=== PATIENT | female | born 2000 | race Caucasian/White ===

== ENCOUNTER 2020-03-12 15:20 | Emergency (ER) | payer BC ==
--- NOTE | 2020-03-12 15:32 | EDM.PDOC ---
ED HPI GENERAL MEDICAL PROBLEM - General Chief Complaint: Abdominal Pain Stated Complaint: ABDOMINAL PAIN Time Seen by Provider: 03/12/20 15:32 Source of Information: Reports: Patient History Limitations: Reports: No Limitations - History of Present Illness INITIAL COMMENTS - FREE TEXT/NARRATIVE: HISTORY AND PHYSICAL: History of present illness: Patient is a 19-year-old female who presents to the emergency room with complaints of generalized abdominal pain and diarrhea since Thursday. She does have some mild nausea associated with the abdominal pain without vomiting. Today she is concerned as she had one episode of vomiting. Patient denies any fever, chills, headache, change in vision, syncope or near syncope. Denies any chest pain, back pain, shortness of breath or cough. Denies any constipation, dysuria nor has noted any blood in urine or stool. Patient has been eating and drinking appropriately. Last menstrual period 2 weeks ago, denies any concerns for STDs. Denies any chance of . Review of systems: As per history of present illness and below otherwise all systems reviewed and negative. Past medical history: As per history of present illness and as reviewed below otherwise noncontributory. Surgical history: As per history of present illness and as reviewed below otherwise noncontributory. Social history: See social history for further information Family history: As per history of present illness and as reviewed below otherwise noncontributory. Physical exam: General: Well-developed and well-nourished 19-year-old female. Alert and oriented. Nontoxic-appearing and in no acute distress. HEENT: Atraumatic, normocephalic, pupils equal and reactive bilaterally, negative for conjunctival pallor or scleral icterus, mucous membranes moist, TMs normal bilaterally, throat clear, neck supple, nontender, trachea midline. No drooling or trismus noted. No meningeal signs. No hot potato voice noted. Lungs: Clear to auscultation, breath sounds equal bilaterally, chest nontender. Heart: S1S2, regular rate and rhythm without overt murmur Abdomen: Soft, nondistended, generalized tenderness in all 4 quadrants. No rebound tenderness. Negative for masses or hepatosplenomegaly. Negative for costovertebral tenderness. Skin: Intact, warm, dry. No lesions or rashes noted. Extremities: Atraumatic, moves all extremities per self without difficulty or deficits, negative for cords or calf pain. Neurovascular unremarkable. Neuro: Awake, alert, oriented. Cranial nerves II through XII unremarkable. Cerebellum unremarkable. Motor and sensory unremarkable throughout. Exam nonfocal. Notes: Lab work is unremarkable. He is unable to give us a stool sample. I did offer to send home the supplies to collect a stool and she could bring back for outpatient labs. She declines. We will send her home with some Bentyl and Zofran. We discussed signs and symptoms that would prompt her to return to the emergency room. Medication, follow-up and supportive care measures were reviewed and discussed. Voices understanding and is agreeable to plan of care. Denies any further questions or concerns at this time. Diagnostics: CBC, CMP, Lipase, UA, HCGU, Stool Studies Therapeutics: IV fluids, Zofran Prescription: Zofran, Bentyl Impression: Gastroenteritis Plan: 1. [place] diet over the next 24 to 48 hours. Increase your fluids to prevent dehydration. 2. You have two prescriptions, Bentyl is for spasms and abdominal cramping related to the diarrhea. Zofran is for nausea, you may take as needed to prevent vomiting. 3. Would like you to follow-up with a primary care provider as we discussed. Return to the ED as needed and as discussed. Definitive disposition and diagnosis as appropriate pending reevaluation and review of above. Right Lower Abdomen Pain Score (Numeric/FACES): 4 - Related Data Allergies Allergy/AdvReac Type Severity Reaction Status Date / Time No Known Allergies Allergy Verified 01/24/14 11:30 Home Meds: Home Meds Dicyclomine [Bentyl] 10 mg PO TID PRN #15 cap 03/12/20 [Rx] Ondansetron [Zofran ODT] 4 mg PO Q6H PRN #8 tab.dis 03/12/20 [Rx] Past Medical History - Past Health History Medical/Surgical History: Denies Medical/Surgical History Social & Family History - Family History Family Medical History: Noncontributory ED ROS GENERAL - Review of Systems Review Of Systems: Comprehensive ROS is negative, except as noted in HPI. ED EXAM, GI/ABD - Physical Exam Exam: See Below (See dictation) Course - Vital Signs Last Recorded V/S: Last Vital Signs Temp 97.7 F 03/12/20 16:53 Pulse 75 03/12/20 16:53 Resp 18 03/12/20 16:53 BP 111/62 03/12/20 16:53 Pulse Ox 99 03/12/20 16:53 - Orders/Labs/Meds Orders: Active Orders 24 hr Category Date Time Status CULTURE URINE [RM] Stat Lab 03/12/20 16:55 Received OVA & PARASITES BY IMMUNOASSAY [MREF] Stat Lab 03/12/20 15:34 Ordered STOOL CULTURE/SHIGA TOXIN [MREF] Stat Lab 03/12/20 15:34 Ordered Labs: Laboratory Tests 03/12/20 03/12/20 03/12/20 Range/Units 15:55 15:55 16:55 WBC 7.91 (4.0-11.0) K/uL RBC 4.65 (4.30-5.90) M/uL Hgb 14.5 (12.0-16.0) g/dL Hct 42.5 (36.0-46.0) % MCV 91.4 (80.0-98.0) fL MCH 31.2 (27.0-32.0) pg MCHC 34.1 (31.0-37.0) g/dL RDW Std Deviation 41.3 (28.0-62.0) fl RDW Coeff of Lucita 12 (11.0-15.0) % Plt Count 242 (150-400) K/uL MPV 10.70 (7.40-12.00) fL Neut % (Auto) 64.1 (48.0-80.0) % Lymph % (Auto) 29.1 (16.0-40.0) % Swisher % (Auto) 6.4 (0.0-15.0) % Eos % (Auto) 0.3 (0.0-7.0) % Baso % (Auto) 0.1 (0.0-1.5) % Neut # (Auto) 5.1 (1.4-5.7) K/uL Lymph # (Auto) 2.3 (0.6-2.4) K/uL Swisher # (Auto) 0.5 (0.0-0.8) K/uL Eos # (Auto) 0.0 (0.0-0.7) K/uL Baso # (Auto) 0.0 (0.0-0.1) K/uL Nucleated RBC % 0.0 /100WBC Nucleated RBCs # 0 K/uL Sodium 138 (136-145) mmol/L Potassium 3.8 (3.5-5.1) mmol/L Chloride 103 (98-107) mmol/L Carbon Dioxide 23.7 (21.0-32.0) mmol/L BUN 12 (7.0-18.0) mg/dL Creatinine 0.7 (0.6-1.0) mg/dL Est Cr Clr Drug Dosing 120.01 mL/min Estimated GFR (MDRD) > 60.0 ml/min Glucose 89 (74-106) mg/dL Calcium 8.6 (8.5-10.1) mg/dL Total Bilirubin 0.6 (0.2-1.0) mg/dL AST 9 L (15-37) IU/L ALT 13 L (14-63) IU/L Alkaline Phosphatase 83 (46-116) U/L Total Protein 7.6 (6.4-8.2) g/dL Albumin 4.5 (3.4-5.0) g/dL Globulin 3.1 (2.6-4.0) g/dL Albumin/Globulin Ratio 1.5 (0.9-1.6) Lipase 113 (73-393) U/L Urine Color YELLOW Urine Appearance CLEAR Urine pH 6.5 (5.0-8.0) Ur Specific Worley 1.020 (1.001-1.035) Urine Protein NEGATIVE (NEGATIVE) mg/dL Urine Glucose (UA) NEGATIVE (NEGATIVE) mg/dL Urine Ketones TRACE H (NEGATIVE) mg/dL Urine Occult Blood NEGATIVE (NEGATIVE) Urine Nitrite NEGATIVE (NEGATIVE) Urine Bilirubin NEGATIVE (NEGATIVE) Urine Urobilinogen 0.2 (<2.0) EU/dL Ur Leukocyte Esterase TRACE H (NEGATIVE) Urine RBC 0-1 (0-2/HPF) Urine WBC 1-2 (0-5/HPF) Ur Epithelial Cells RARE (NONE-FEW) Amorphous Sediment FEW (NEGATIVE) Urine Bacteria FEW (NEGATIVE) Urine Mucus FEW (NONE-MOD) Urine HCG, Qual (NEGATIVE) 03/12/20 Range/Units 16:55 WBC (4.0-11.0) K/uL RBC (4.30-5.90) M/uL Hgb (12.0-16.0) g/dL Hct (36.0-46.0) % MCV (80.0-98.0) fL MCH (27.0-32.0) pg MCHC (31.0-37.0) g/dL RDW Std Deviation (28.0-62.0) fl RDW Coeff of Lucita (11.0-15.0) % Plt Count (150-400) K/uL MPV (7.40-12.00) fL Neut % (Auto) (48.0-80.0) % Lymph % (Auto) (16.0-40.0) % Swisher % (Auto) (0.0-15.0) % Eos % (Auto) (0.0-7.0) % Baso % (Auto) (0.0-1.5) % Neut # (Auto) (1.4-5.7) K/uL Lymph # (Auto) (0.6-2.4) K/uL Swisher # (Auto) (0.0-0.8) K/uL Eos # (Auto) (0.0-0.7) K/uL Baso # (Auto) (0.0-0.1) K/uL Nucleated RBC % /100WBC Nucleated RBCs # K/uL Sodium (136-145) mmol/L Potassium (3.5-5.1) mmol/L Chloride (98-107) mmol/L Carbon Dioxide (21.0-32.0) mmol/L BUN (7.0-18.0) mg/dL Creatinine (0.6-1.0) mg/dL Est Cr Clr Drug Dosing mL/min Estimated GFR (MDRD) ml/min Glucose (74-106) mg/dL Calcium (8.5-10.1) mg/dL Total Bilirubin (0.2-1.0) mg/dL AST (15-37) IU/L ALT (14-63) IU/L Alkaline Phosphatase (46-116) U/L Total Protein (6.4-8.2) g/dL Albumin (3.4-5.0) g/dL Globulin (2.6-4.0) g/dL Albumin/Globulin Ratio (0.9-1.6) Lipase (73-393) U/L Urine Color Urine Appearance Urine pH (5.0-8.0) Ur Specific Worley (1.001-1.035) Urine Protein (NEGATIVE) mg/dL Urine Glucose (UA) (NEGATIVE) mg/dL Urine Ketones (NEGATIVE) mg/dL Urine Occult Blood (NEGATIVE) Urine Nitrite (NEGATIVE) Urine Bilirubin (NEGATIVE) Urine Urobilinogen (<2.0) EU/dL Ur Leukocyte Esterase (NEGATIVE) Urine RBC (0-2/HPF) Urine WBC (0-5/HPF) Ur Epithelial Cells (NONE-FEW) Amorphous Sediment (NEGATIVE) Urine Bacteria (NEGATIVE) Urine Mucus (NONE-MOD) Urine HCG, Qual NEGATIVE (NEGATIVE) Meds: Medications Discontinued Medications Generic Name Dose Route Start Last Admin Trade Name Freq PRN Reason Stop Dose Admin Sodium Chloride 1,000 mls @ 999 mls/hr 03/12/20 15:34 03/12/20 15:54 Normal Saline IV 03/12/20 16:34 999 mls/hr STAT ONE Administration Ondansetron HCl 4 mg 03/12/20 15:34 03/12/20 15:54 Zofran IVPUSH 03/12/20 15:35 4 mg ONETIME ONE Administration Departure - Departure Time of Disposition: 17:30 Disposition: Home, Self-Care 01 Clinical Impression: Gastroenteritis - Discharge Information Prescriptions: Dicyclomine [Bentyl] 10 mg PO TID PRN #15 cap PRN Reason: Abdominal cramping Ondansetron [Zofran ODT] 4 mg PO Q6H PRN #8 tab.dis PRN Reason: Nausea Instructions: Viral Gastroenteritis, Adult, [id number] Referrals: PCP,None [Primary Care Provider] - Forms: ED Department Discharge Additional Instructions: The following information is given to patients seen in the emergency department who are being discharged to home. This information is to outline your options for follow-up care. We provide all patients seen in our emergency department with a follow-up referral. The need for follow-up, as well as the timing and circumstances, are variable depending upon the specifics of your emergency department visit. If you don't have a primary care physician on staff, we will provide you with a referral. We always advise you to contact your personal physician following an emergency department visit to inform them of the circumstance of the visit and for follow-up with them and/or the need for any referrals to a consulting specialist. The emergency department will also refer you to a specialist when appropriate. This referral assures that you have the opportunity for follow-up care with a specialist. All of these measure are taken in an effort to provide you with optimal care, which includes your follow-up. Under all circumstances we always encourage you to contact your private physician who remains a resource for coordinating your care. When calling for follow-up care, please make the office aware that this follow-up is from your recent emergency room visit. If for any reason you are refused follow-up, please contact the [facility] at and asked to speak to the emergency department charge nurse. [facility] [address] [place] [address] [facility] [address] [place] [id number] 1. [place] diet over the next 24 to 48 hours. Increase your fluids to prevent dehydration. 2. You have two prescriptions, Bentyl is for spasms and abdominal cramping related to the diarrhea. Zofran is for nausea, you may take as needed to pre vent vomiting. 3. Would like you to follow-up with a primary care provider as we discussed. Return to the ED as needed and as discussed. Sepsis Event Note (ED) - Focused Exam Vital Signs: Vital Signs Temp Pulse Resp BP Pulse Ox 03/12/20 16:53 97.7 F 75 18 111/62 99 03/12/20 15:31 97.9 F 99 18 123/81 97 - My Orders Last 24 Hours: My Active Orders 03/12/20 15:34 OVA & PARASITES BY IMMUNOASSAY [MREF] Stat STOOL CULTURE/SHIGA TOXIN [MREF] Stat 03/12/20 16:55 CULTURE URINE [RM] Stat - Assessment/Plan Last 24 Hours: My Active Orders 03/12/20 15:34 OVA & PARASITES BY IMMUNOASSAY [MREF] Stat STOOL CULTURE/SHIGA TOXIN [MREF] Stat 03/12/20 16:55 CULTURE URINE [RM] Stat
[2020-03-12] MEDS ORDERED: Ondansetron 4 MG/2 ML SDV IVPUSH ONE (15:34)
[2020-03-12] MEDS ORDERED: Sodium Chloride 0.9% 1,000 ML IV ONE (15:34)
[2020-03-12 16:40] LABS: BLOOD UREA NITROGEN,BUN 12 mg/dL (7.0-18.0); CARBON DIOXIDE,CO2 23.7 mmol/L (21.0-32.0); CHLORIDE,CL 103 mmol/L (98-107); GLUCOSE RANDOM 89 mg/dL (74-106); LIPASE 113 U/L (73-393); POTASSIUM,K 3.8 mmol/L (3.5-5.1); SODIUM,NA 138 mmol/L (136-145)
[2020-03-12 18:05] VITALS: BP 113/63; PULSE 78
== END 2020-03-12 17:38 | disposition home or self-care (01) ==
LOC: MW.ED 15:20
DX: K52.9 Noninfective gastroenteritis and colitis, unspecified (principal)
CPT/HCPCS: 36415; 80053; 81001; 81025; 83690; 85025; 87086; 96361; 96374; 99284; J2405; J7030; 99283

== ENCOUNTER 2023-09-06 14:38 | Emergency (ER) | payer BC ==
[2023-09-06 15:07] VITALS: PULSE 92
[2023-09-06] MEDS ORDERED: Ondansetron 4 MG/2 ML SDV IVPUSH ONE (15:27)
[2023-09-06] MEDS ORDERED: Sodium Chloride 0.9% 2.5 ML Syringe FLUSH PRN (15:27)
[2023-09-06] MEDS ORDERED: Sodium Chloride 0.9% 10 ML Syringe FLUSH PRN (15:27)
[2023-09-06] MEDS ORDERED: Sodium Chloride 0.9% 1,000 ML IV ONE ×2 (15:27→17:41)
[2023-09-06 16:01] LABS: BASOPHILS ABSOLUTE AUTO 0.02 K/uL (0.00-0.20); BASOPHILS PERCENT AUTO 0.1 % (0.0-1.0); EOSINOPHILS ABSOLUTE AUTO 0.04 K/uL (0.00-0.45); EOSINOPHILS PERCENT AUTO 0.2 % (0.0-6.0); HEMOGLOBIN 15.2 g/dL (12.0-16.0); IMMATURE GRAN ABSOLUTE AUTO 0.04 K/uL (0.00-0.05); IMMATURE GRAN PERCENT AUTO 0.2 % (0.0-0.4); LYMPHOCYTES ABSOLUTE AUTO 0.73 K/uL (1.00-4.80); LYMPHOCYTES PERCENT AUTO 4.2 % (24.0-44.0); MEAN CORPUSCULAR HEMOGLOBIN 31.2 pg (28.0-32.0); MEAN CORPUSCULAR HGB CONC 35.3 g/dL (32.0-36.0); MEAN CORPUSCULAR VOLUME 88.3 fL (83.0-99.0); MEAN PLATELET VOLUME 9.8 fL (9.4-12.3); MONOCYTES ABSOLUTE AUTO 0.68 K/uL (0.00-0.80); MONOCYTES PERCENT AUTO 3.9 % (0.0-8.0); NEUTROPHILS ABSOLUTE AUTO 15.86 K/uL (1.80-7.70); NEUTROPHILS PERCENT AUTO 91.4 % (41.0-71.0); PLATELET COUNT,PLT 252 K/uL (150-400); RED BLOOD CELL COUNT 4.87 M/uL (4.10-5.30); WHITE BLOOD CELL COUNT,WBC 17.37 K/uL (3.9-11.3)
[2023-09-06 16:01] LABS: CORONAVIRUS COVID-19 NAA NEGATIVE (NEGATIVE); INFLUENZA A NAA NEGATIVE (NEGATIVE); INFLUENZA B NAA NEGATIVE (NEGATIVE); RESPIRATORY SYNCYTIAL VIR NAA NEGATIVE (NEGATIVE)
[2023-09-06 16:43] LABS: A/G RATIO 1.3 (0.9-1.6); BILIRUBIN TOTAL 0.8 mg/dL (0.2-1.0); CALCIUM 8.9 mg/dL (8.5-10.1); CARBON DIOXIDE,CO2 24.4 mmol/L (21.0-32.0); CREATININE 0.8 mg/dL (0.6-1.0); EST CRCL DRUG DOSING (CG) 106.36 mL/min; MAGNESIUM 1.7 mg/dL (1.8-2.4); POTASSIUM,K 4.1 mmol/L (3.5-5.1); PROTEIN TOTAL,TP 7.2 g/dL (6.4-8.2)
[2023-09-06] MEDS ORDERED: Metoclopramide 10 MG/2 ML SDV IVPUSH ONE (17:41)
[2023-09-06] MEDS ORDERED: diphenhydrAMINE 50 MG/ML SDV IVPUSH ONE (17:41)
[2023-09-06 17:48] LABS: BILIRUBIN,URINE NEGATIVE (NEGATIVE); GLUCOSE,URINE NEGATIVE (NEGATIVE); KETONES,URINE 40 mg/dL (NEGATIVE); LEUKOCYTE ESTERASE,URINE NEGATIVE (NEGATIVE); NITRITE,URINE NEGATIVE (NEGATIVE); OCCULT BLOOD,URINE LARGE (NEGATIVE); PROTEIN,URINE NEGATIVE (NEGATIVE); UROBILINOGEN,URINE 0.2 EU/dL (<2.0)
[2023-09-06 17:55] LABS: APPEARANCE,URINE SLT CLOUDY; COLOR,URINE DARK YELLOW
[2023-09-06 17:57] LABS: BACTERIA,URINE FEW (NEGATIVE); EPITHELIAL CELLS,URINE RARE (NONE-FEW); WBC,URINE 0-2 (0-5/HPF)
[2023-09-06] MEDS ORDERED: Ondansetron 4 MG/2 ML SDV IVPUSH STA (19:44)
[2023-09-06] MEDS ORDERED: cefTRIAXone 1 GM in Sodium Chloride 0.9% 50 ML IV ONE (19:51)
[2023-09-06 20:26] VITALS: BP 104/45
== END 2023-09-06 20:33 | disposition home or self-care (01) ==
LOC: MW.ED 14:38
DX: O20.0 Threatened abortion (principal); O21.9 Vomiting of pregnancy, unspecified; Z20.822 Contact with and (suspected) exposure to COVID-19; Z3A.11 11 weeks gestation of pregnancy
CPT/HCPCS: 0241U; 36415; 76705; 76817; 80053; 81001; 83690; 83735; 84702; 85025; 86900; 86901; 96361; 96365; 96375; 96376; 99284; J0696; J1200; J2405; J2765; J3490; J7030

== ENCOUNTER 2024-04-20 18:37 | Emergency (ER) | payer BC ==
[2024-04-20 19:20] LABS: BASOPHILS ABSOLUTE AUTO 0.02 K/uL (0.00-0.20); BASOPHILS PERCENT AUTO 0.1 % (0.0-1.0); EOSINOPHILS ABSOLUTE AUTO 0.01 K/uL (0.00-0.45); EOSINOPHILS PERCENT AUTO 0.1 % (0.0-6.0); HEMATOCRIT 32.8 % (37.0-47.0); HEMOGLOBIN 11.8 g/dL (12.0-16.0); IMMATURE GRAN ABSOLUTE AUTO 0.07 K/uL (0.00-0.05); IMMATURE GRAN PERCENT AUTO 0.5 % (0.0-0.4); LYMPHOCYTES ABSOLUTE AUTO 2.37 K/uL (1.00-4.80); LYMPHOCYTES PERCENT AUTO 17.3 % (24.0-44.0); MEAN CORPUSCULAR HEMOGLOBIN 32.2 pg (28.0-32.0); MEAN CORPUSCULAR VOLUME 89.6 fL (83.0-99.0); MEAN PLATELET VOLUME 10.3 fL (9.4-12.3); PLATELET COUNT,PLT 258 K/uL (150-400); RED BLOOD CELL COUNT 3.66 M/uL (4.10-5.30); WHITE BLOOD CELL COUNT,WBC 13.67 K/uL (3.9-11.3)
[2024-04-20] MEDS: Ondansetron 4 MG/2 ML SDV IVPUSH ONE (19:21)
[2024-04-20] MEDS: Sodium Chloride 0.9% 1,000 ML IV ONE (19:21)
[2024-04-20 19:32] LABS: APPEARANCE,URINE SLT CLOUDY; BILIRUBIN,URINE NEGATIVE (NEGATIVE); COLOR,URINE YELLOW; GLUCOSE,URINE NEGATIVE (NEGATIVE); KETONES,URINE 15 mg/dL (NEGATIVE); LEUKOCYTE ESTERASE,URINE SMALL (NEGATIVE); NITRITE,URINE NEGATIVE (NEGATIVE); OCCULT BLOOD,URINE TRACE-INTACT (NEGATIVE); PROTEIN,URINE 30 mg/dL (NEGATIVE); UROBILINOGEN,URINE 0.2 EU/dL (<2.0)
[2024-04-20 19:40] LABS: BACTERIA,URINE 1+ (NEGATIVE); MUCUS,URINE LIGHT (NONE-MOD); SQUAMOUS EPITHELIAL CELLS,UR MANY
[2024-04-20 19:44] LABS: ALBUMIN 2.8 g/dL (3.4-5.0); BILIRUBIN TOTAL 0.3 mg/dL (0.2-1.0); CALCIUM 8.6 mg/dL (8.5-10.1); CARBON DIOXIDE,CO2 21.6 mmol/L (21.0-32.0); CREATININE 0.8 mg/dL (0.6-1.0); EST CRCL DRUG DOSING (CG) 101.51 mL/min; POTASSIUM,K 3.6 mmol/L (3.5-5.1); PROTEIN TOTAL,TP 6.1 g/dL (6.4-8.2)
[2024-04-20 19:57] LABS: A/G RATIO 0.9 (0.9-1.6)
[2024-04-20] MEDS: Cephalexin 500 MG Cap PO ONE (20:18)
[2024-04-20 20:29] VITALS: BP 141/86; PULSE 117
== END 2024-04-20 20:29 | disposition home or self-care (01) ==
LOC: MW.ED 18:37
DX: E86.0 Dehydration (principal); N39.0 Urinary tract infection, site not specified; Z75.8 Other problems related to medical facilities and other health care
CPT/HCPCS: 36415; 80053; 81001; 85025; 87086; 96361; 96374; 99284; A9270; J2405; J7030

== ENCOUNTER 2024-06-18 02:26 | Inpatient (IN) | payer BC ==
[2024-06-18] MEDS ORDERED: ePHEDrine 50 MG/ML SDV IVPUSH PRN (16:07)
[2024-06-18] MEDS ORDERED: Phenylephrine HCl In 0.9% NaCl 1 MG/10 ML Syringe IVPUSH PRN (16:07)
[2024-06-18] MEDS ORDERED: dexmedeTOMIDine HCl 200 MCG/2 ML SDV EPIDUR SCH (16:15)
[2024-06-18] MEDS ORDERED: Lidocaine 1% 50 ML MDV INJECT PRN (16:54)
[2024-06-18] MEDS ORDERED: Carboprost Tromethamine 250 MCG/1 mL Vial IM PRN (16:54)
[2024-06-18] MEDS ORDERED: Water For Irrigation,Sterile 1,000 ML Container IRR PRN (16:54)
[2024-06-18] MEDS ORDERED: Sodium Chloride 0.9% 20 ML SDV IV PRN (16:54)
[2024-06-18] MEDS ORDERED: Misoprostol 200 MCG Tab PO PRN (16:54)
[2024-06-18] MEDS ORDERED: Tranexamic Acid IN NACL,ISO-OS 1,000 MG in Premix Bag 1 BAG IV PRN (16:54)
[2024-06-18] MEDS ORDERED: Misoprostol 25 MCG (1/4 of 100 MCG) Tab VAG PRN (16:54)
[2024-06-18] MEDS ORDERED: Terbutaline 1 MG/ML SDV SUBCUT PRN (16:54)
[2024-06-18] MEDS ORDERED: Sodium Chloride 0.9% 2.5 ML Syringe FLUSH PRN (16:54)
[2024-06-18] MEDS ORDERED: Methylergonovine 0.2 MG/1 ML Amp IM PRN (16:54)
[2024-06-18] MEDS ORDERED: Butorphanol 2 MG/ML SDV IVPUSH PRN (16:54)
[2024-06-18] MEDS ORDERED: Oxytocin/0.9 % Sodium Chloride 30 UNIT/500 ML BAG IV SCH (17:00)
[2024-06-18 17:41] LABS: HEMATOCRIT 31.8 % (37.0-47.0); MEAN CORPUSCULAR HEMOGLOBIN 31.1 pg (28.0-32.0); MEAN CORPUSCULAR HGB CONC 34.6 g/dL (32.0-36.0); MEAN CORPUSCULAR VOLUME 89.8 fL (83.0-99.0); MEAN PLATELET VOLUME 11.6 fL (9.4-12.3); PLATELET COUNT,PLT 223 K/uL (150-400); RED BLOOD CELL COUNT 3.54 M/uL (4.10-5.30); WHITE BLOOD CELL COUNT,WBC 10.72 K/uL (3.9-11.3)
[2024-06-18] MEDS: Misoprostol 25 MCG (1/4 of 100 MCG) Tab VAG PRN (18:05)
[2024-06-19] MEDS: Lactated Ringers 1,000 ML IV SCH (02:06)
[2024-06-19] MEDS: Ropivacaine HCl/PF 400 MG in Premix Bag 1 BAG EPIDUR SCH (06:15)
[2024-06-19] MEDS: Oxytocin/0.9 % Sodium Chloride 30 UNIT/500 ML BAG IV SCH (07:33)
[2024-06-19] MEDS: Ropivacaine HCl/PF 200 ML ONE (08:21)
[2024-06-19] MEDS: Phenylephrine HCl In 0.9% NaCl 1 MG/10 ML Syringe ONE (08:21)
[2024-06-19] MEDS: Bupivacaine 0.5% 10 ML SDV ONE (08:21)
[2024-06-19] MEDS: Ondansetron 4 MG/2 ML SDV IVPUSH PRN (10:22)
[2024-06-19] MEDS: Sodium Chloride 0.9% 10 ML Syringe FLUSH PRN (10:22)
[2024-06-19] MEDS: Acetaminophen 500 MG Tab PO PRN (19:09)
[2024-06-19] MEDS ORDERED: Ropivacaine HCl/PF 200 ML ONE (20:18)
[2024-06-19] MEDS ORDERED: Phenylephrine HCl In 0.9% NaCl 1 MG/10 ML Syringe ONE (20:18)
[2024-06-19] MEDS ORDERED: Bupivacaine 0.5% 10 ML SDV ONE (20:18)
[2024-06-20] MEDS ORDERED: oxyCODONE 5 MG Tab PO PRN (02:48)
[2024-06-20] MEDS ORDERED: Acetaminophen 500 MG Tab PO PRN (02:48)
[2024-06-20] MEDS ORDERED: Docusate Sodium 100 MG Cap PO PRN (02:48)
[2024-06-20 03:07] LABS: PH,UMBILICAL ARTERIAL 7.179 (7.18-7.38); PH,UMBILICAL VENOUS 7.324 (7.25-7.45)
[2024-06-20] MEDS: Ibuprofen 800 MG Tab PO PRN (04:25)
[2024-06-20] MEDS: Witch Hazel Medicated Pads 40/Jar TOP PRN (04:26)
[2024-06-20] MEDS: Lanolin 100% Cream 7 GM Tube TOP PRN (04:27)
[2024-06-20] MEDS: Benzocaine/Menthol 20%-0.5% Spray 78 GM Cannister TOP PRN (04:27)
[2024-06-20] MEDS: Furosemide 20 MG/2 ML VIAL IVPUSH SCH (12:32)
[2024-06-21 05:41] LABS: HEMATOCRIT 25.5 % (37.0-47.0); HEMOGLOBIN 8.3 g/dL (12.0-16.0)
[2024-06-21] MEDS: Sodium Ferric Gluconate Cmplex 125 MG in Sodium Chloride 0.9% 100 ML IV ONE (11:24)
[2024-06-21 11:37] VITALS: BP 120/69; PULSE 85
== END 2024-06-21 13:05 | disposition home or self-care (01) | DRG 560 ==
LOC: MW.OB 02:26 → OBSVTOIN 06-20 02:26 → MW.OB 06-20 06:45
PROVIDERS: ADMIT Obstetrics & Gynecology; ATTEND Obstetrics & Gynecology
PROC: 10E0XZZ Delivery of Products of Conception, External Approach (ICD-10-PCS; principal; 2024-06-20)
PROC: 0KQM0ZZ Repair Perineum Muscle, Open Approach (ICD-10-PCS; 2024-06-20)
PROC: 3E0R3BZ Introduction of Anesthetic Agent into Spinal Canal, Percutaneous Approach (ICD-10-PCS; 2024-06-20)
PROC: 00HU33Z Insertion of Infusion Device into Spinal Canal, Percutaneous Approach (ICD-10-PCS; 2024-06-20)
DX: O14.04 Mild to moderate pre-eclampsia, complicating childbirth (principal); O90.81 Anemia of the puerperium; D62 Acute posthemorrhagic anemia; O70.1 Second degree perineal laceration during delivery; Z3A.37 37 weeks gestation of pregnancy; Z37.0 Single live birth
CPT/HCPCS: 01967; 36415; 51702; 59025; 59409; 82803; 85014; 85018; 85027; 86592; 86850; 86900; 86901; A9270-GY; J0665; J1940; J2371; J2405; J2590; J2795; J2916; J3490; J7120